=== PATIENT | male | born 1970 | race Caucasian/White ===

== ENCOUNTER 2024-02-02 18:54 | Emergency (ER) | payer BC ==
[~2024-02-02] VITALS: Ht 152.4 cm; Wt 96.0 kg
[2024-02-02 19:01] VITALS: O2SAT 98
[2024-02-02] MEDS ORDERED: LIDO1ADH82 TOP (19:50)
[2024-02-02 19:53] VITALS: TEMP 98.3
[2024-02-02] MEDS: ACETAMINOPHEN 325MG TABLET PO ONE (19:53)
[2024-02-02 20:10] VITALS: BP 142/86; PULSE 80; RESP 18
== END 2024-02-02 20:10 | disposition home or self-care (01) ==
LOC: ER 18:54
DX: S22.31XA Fracture of one rib, right side, initial encounter for closed fracture (principal); E11.9 Type 2 diabetes mellitus without complications; W01.0XXA Fall on same level from slipping, tripping and stumbling without subsequent striking against object, initial encounter; Y93.89 Activity, other specified; Y92.89 Other specified places as the place of occurrence of the external cause; Y99.8 Other external cause status
CPT/HCPCS: 71046; 99283